=== PATIENT | female | born 1995 | race Caucasian/White ===

== ENCOUNTER 2018-01-06 12:48 | Emergency (ER) | END 2018-01-06 15:26 | disposition home or self-care (01) ==

== ENCOUNTER 2018-03-12 13:17 | Emergency (ER) | END 2018-03-12 14:25 | disposition home or self-care (01) ==

== ENCOUNTER 2018-06-20 16:59 | Emergency (ER) | END 2018-06-20 19:07 | disposition home or self-care (01) ==